=== PATIENT | female | born 1990 | race African-American/Black ===

== ENCOUNTER 2020-09-01 15:26 | Emergency (ER) | payer MEDICAID ==
[~2020-09-01] VITALS: Ht 157.5 cm; Wt 82.1 kg
[2020-09-01 15:54] VITALS: BP 139/78
--- NOTE | 2020-09-01 16:33 | NUR ---
Pt to lobby waiting for open bed. Urine sample collected .
--- NOTE | 2020-09-01 16:35 | NUR ---
Urine sample collected, walked to lab and handed to CPT. ELIZABETH Jon to place orders for UA.
--- NOTE | 2020-09-01 16:40 | NUR ---
30 Y/O F BIB SELF FROM HOME, C/O INCREASED URINATION. DENIES DYSURIA, N/V/D, URINARY RETENTION AND CONSTIPATION. STATES BACK AND ABDOMEN PAIN, HOWEVER, HAS HIG HPAIN TOLERANCE AND DENIES PAIN. BED LOCKED IN LOWEST POSITION, SIDE RAILS X 1, CALL LIGHT IN REACH. PMH: DENIES MED: DENIES NKA
[2020-09-01 16:45] LABS: APPEARANCE,URINE CLEAR (CLEAR); BILIRUBIN,URINE NEGATIVE (NEGATIVE); BLOOD, URINE NEGATIVE (NEGATIVE); COLOR,URINE YELLOW (YELLOW); LEUKOCYTE ESTERASE ,URINE NEGATIVE (NEGATIVE); NITRITE, URINE NEGATIVE (NEGATIVE); UGLUCOSE NEGATIVE (NEGATIVE)
[2020-09-01] MEDS ORDERED: NITR100C7 PO (17:14)
[2020-09-01 18:09] VITALS: BP 139/78
--- NOTE | 2020-09-01 18:09 | NUR ---
Patient discharged with v/s stable. Written and verbal after care instructions given and explained. Patient alert, oriented and verbalized understanding of instructions. Ambulatory with steady gait. All questions addressed prior to discharge. ID band removed. Patient advised to follow up with PMD. Rx of NITROFURANTOIN given. Patient educated on indication of medication including possible reaction and side effects. Opportunity to ask questions provided and answered.
== END 2020-09-01 18:09 | disposition home or self-care (01) ==
LOC: MED 15:26
DX: R35.0 Frequency of micturition (principal); Z79.899 Other long term (current) drug therapy
CPT/HCPCS: 36415; 81003; 81025; 87086; 87491; 99283

== ENCOUNTER 2021-02-19 13:54 | Emergency (ER) | payer MEDICAID, OTHER ==
[~2021-02-19] VITALS: Ht 157.5 cm; Wt 88.5 kg
[~2021-02-19 13:54] MED LIST: NITR100C7 PO
[2021-02-19 14:03] VITALS: BP 132/58
--- NOTE | 2021-02-19 14:08 | NUR ---
Dr. Willard evaluating patient in triage.
[2021-02-19 14:52] LABS: APPEARANCE,URINE CLEAR (CLEAR); BILIRUBIN,URINE NEGATIVE (NEGATIVE); BLOOD, URINE 1+ (NEGATIVE); COLOR,URINE YELLOW (YELLOW); LEUKOCYTE ESTERASE ,URINE NEGATIVE (NEGATIVE); NITRITE, URINE NEGATIVE (NEGATIVE); UGLUCOSE NEGATIVE (NEGATIVE)
[2021-02-19 15:14] LABS: BASOPHILS # (AUTO) 0.1 K/uL (0.00-0.22); BASOPHILS % (AUTO) 0.8 % (0.0-2.0); EOSINOPHILS # (AUTO) 0.1 K/uL (0-0.4); EOSINOPHILS % (AUTO) 1.5 % (0.0-4.0); HEMATOCRIT 37.9 % (36-48); LYMPHOCYTES # (AUTO) 2.1 K/uL (2.5-16.5); MEAN CORPUSCULAR HEMOGLOBIN 31 pg (27-31); MEAN CORPUSCULAR HGB CONC 35 g/dL (33-37); MEAN CORPUSCULAR VOLUME 89.3 fL (80-94); MONOCYTES # (AUTO) 0.4 K/uL (0.8-1.0); MONOCYTES % (AUTO) 6.2 % (1.7-9.3); NEUTROPHILS # (AUTO) 3.8 K/uL (1.8-7.7); NEUTROPHILS % (AUTO) 58.5 % (42.2-75.2); PLATELET COUNT (AUTO) 317 K/uL (140-450); RED BLOOD CELL COUNT(AUTO) 4.24 MIL/uL (4.20-5.40); RED CELL DISTRIBUTION WIDTH 14.1 % (11.6-13.7); WHITE BLOOD COUNT (AUTO) 6.5 K/uL (4.8-10.8)
[2021-02-19 15:33] LABS: RBC,URINE 0-5 /HPF (0-5); WBC,URINE NONE SEEN /HPF (0-5)
--- NOTE | 2021-02-19 17:02 | NUR ---
pt c/o pelvic pain with vaginal discharge since this am. currently 8 weeks .
--- NOTE | 2021-02-19 17:03 | NUR ---
chaperoned dr gamble with pelvic exam.
[2021-02-19] MEDS ORDERED: ACET-10509 PO (17:09)
[2021-02-19 17:32] VITALS: BP 110/70
== END 2021-02-19 17:32 | disposition home or self-care (01) ==
LOC: MED 13:54
DX: O20.0 Threatened abortion (principal); Z3A.08 8 weeks gestation of pregnancy; Z79.899 Other long term (current) drug therapy; Z98.890 Other specified postprocedural states
CPT/HCPCS: 36415; 76801; 81001; 81025; 84702; 85025; 86900; 86901; 87210; 99284